=== PATIENT | male | born 1990 | race American Indian/Alaskan Native ===

== ENCOUNTER 2019-04-06 12:16 | Emergency (ER) | payer SELFPAY ==
[2019-04-06 12:22] VITALS: BP 118/81
--- NOTE | 2019-04-06 12:26 | Emergency Department Report ---
Chief Complaint: Wound/Laceration Stated Complaint: CUT ON L FINGER - HPI History of Present Illness: This is a 29-year-old male nontoxic well in appearance with no signs of distress presents to the ED for a work excuse note. Patient stated had a small cut last week and was home for a few days. Patient denies any symptoms or complaints. Denies any fever, chills, headache, nausea, vomiting, chest pain or SOB. Denies any allergies or PMH. Stated is UTD with tetanus. - Exam Vital Signs: Vital Signs 04/06/19 12:21 Temperature 98.0 F Pulse Rate 68 Respiratory 16 Rate Blood Pressure 118/81 O2 Sat by Pulse 100 Oximetry Physical Exam: Neurovacular intact. Normal healing. No cellulitis or abscess. Well healed. MSE screening note: Focused history and physical exam performed. Due to findings the following was ordered: ED Medical Decision Making - Medical Decision Making Patient was instructed to Follow-up with a primary care doctor in 3-5 days or if symptoms worsen and continue return to emergency room as soon as possible. At time of discharge, the patient does not seem toxic or ill in appearance. No acute signs of distress noted. Patient agrees to discharge treatment plan of care. No further questions noted by the patient. ED Disposition for MSE Clinical Impression: Encounter to obtain excuse from work Disposition: DC-01 TO HOME OR SELFCARE Is pt being admited?: No Does the pt Need Aspirin: No Condition: Stable Additional Instructions: Follow-up with a primary care doctor in 3-5 days or if symptoms worsen and continue return to emergency room as soon as possible. Referrals: PRIMARY CAREMD [Referring] - 3-5 Days CONSTANTINE KHALIL MD [Staff Physician] - 3-5 Days [facility] [Outside] - 3-5 Days [facility] [Outside] - 3-5 Days Forms: Work/School Release Form(ED)
== END 2019-04-06 12:40 | disposition home or self-care (01) ==
LOC: ED 12:16
DX: Z02.79 Encounter for issue of other medical certificate (principal)
CPT/HCPCS: 99282

== ENCOUNTER 2019-07-31 13:50 | Emergency (ER) | payer SELFPAY ==
[2019-07-31] MEDS ORDERED: TETANUS,DIPH,PERTUSS(ACELL) VACCINE 0.5 ML SYRINGE IM ONE (14:45)
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
[2019-07-31 17:45] VITALS: BP 140/90
== END 2019-07-31 17:44 | disposition home or self-care (01) ==
LOC: ED 13:50
DX: S50.821A Blister (nonthermal) of right forearm, initial encounter (principal); F12.10 Cannabis abuse, uncomplicated; Z79.899 Other long term (current) drug therapy; X58.XXXA Exposure to other specified factors, initial encounter; Y93.89 Activity, other specified; Y92.89 Other specified places as the place of occurrence of the external cause; Y99.8 Other external cause status
CPT/HCPCS: 90471; 90715; 99282

== ENCOUNTER 2020-04-24 23:08 | Emergency (ER) | payer SELFPAY ==
[2020-04-24 23:31] VITALS: BP 138/92
--- NOTE | 2020-04-25 00:07 | Emergency Department Report ---
ED ENT HPI - General Chief complaint: Dental/Oral Stated complaint: TOOTH PAIN Time Seen by Provider: 04/24/20 23:50 Source: patient Mode of arrival: Ambulatory Limitations: No Limitations - History of Present Illness Initial comments: Patient is a 30-year-old male who presents emergency room with complaints of left upper tooth pain. Patient states started 3 days ago. Patient states the pain is worsened. Patient states the pain is a 10 out of 10. Patient states his upper gums are swollen. Patient states the pain is worse with movement, eating, talking. Patient states the pain is better with rest and Tylenol. Patient states he has taken Tylenol and Motrin as needed. Patient states he has not seen a dentist since 2016. Patient states he has had dental caries in the past. Patient denies allergies. Patient denies past medical history. Patient denies recent surgery. Patient denies recent travel. Patient denies recent international travel. Patient denies exposure to the novel coronavirus. Patient denies sick contacts. Patient denies fever and chills. Patient denies cough. Patient denies diarrhea. Patient denies coming in contact with anybody with symptoms of the novel coronavirus. MD complaint: tooth pain -: Sudden Severity: severe Severity scale (0 -10): 10 Quality: stabbing Consistency: constant Improves with: NSAID, other medication, rest Worsens with: eating, movement Context- Dental: history of dental caries Associated Symptoms: gum swelling, toothache. denies: fever, cough, pain with swallowing, sore throat, tinnitus, hearing loss, discharge from ear, rhinorrhea - Related Data Previous Rx's Medication Instructions Recorded Last Taken Type SILVER sulfADIAZINE 50 GRAM 1 applic TP BID 7 Days #1 tube 07/31/19 Unknown Rx [Thermazene 50 Gram] Acetaminophen/Codeine [Tylenol 1 tab PO Q6H PRN #8 tab 04/25/20 Unknown Rx /Codeine # 3 tab] Amoxicillin/Potassium Clav 1 each PO BID 10 Days #20 tablet 04/25/20 Unknown Rx [Augmentin 875-125 Tablet] Ibuprofen [Motrin 800 MG tab] 800 mg PO Q8HR PRN #30 tablet 04/25/20 Unknown Rx Allergies Allergy/AdvReac Type Severity Reaction Status Date / Time No Known Allergies Allergy Unverified 04/06/19 12:17 ED Dental HPI - General Chief complaint: Dental/Oral Stated complaint: TOOTH PAIN Time Seen by Provider: 04/25/20 00:03 Source: patient Mode of arrival: Ambulatory Limitations: No Limitations - History of Present Illness Improves with: NSAID, rest Worsens with: chewing, movement Context- Dental: history of dental caries, poor dental care - Related Data Previous Rx's Medication Instructions Recorded Last Taken Type SILVER sulfADIAZINE 50 GRAM 1 applic TP BID 7 Days #1 tube 07/31/19 Unknown Rx [Thermazene 50 Gram] Acetaminophen/Codeine [Tylenol 1 tab PO Q6H PRN #8 tab 04/25/20 Unknown Rx /Codeine # 3 tab] Amoxicillin/Potassium Clav 1 each PO BID 10 Days #20 tablet 04/25/20 Unknown Rx [Augmentin 875-125 Tablet] Ibuprofen [Motrin 800 MG tab] 800 mg PO Q8HR PRN #30 tablet 04/25/20 Unknown Rx Allergies Allergy/AdvReac Type Severity Reaction Status Date / Time No Known Allergies Allergy Unverified 04/06/19 12:17 ED Review of Systems ROS: Stated complaint: TOOTH PAIN Other details as noted in HPI Constitutional: denies: chills, fever Eyes: denies: eye pain, eye discharge, vision change ENT: as per HPI, dental pain. denies: ear pain, throat pain Respiratory: denies: cough, shortness of breath, wheezing Cardiovascular: denies: chest pain, palpitations Endocrine: no symptoms reported Gastrointestinal: denies: abdominal pain, nausea, diarrhea Genitourinary: denies: urgency, dysuria Musculoskeletal: denies: back pain, joint swelling, arthralgia Skin: denies: rash, lesions Neurological: denies: headache, weakness, paresthesias Psychiatric: denies: anxiety, depression Hematological/Lymphatic: denies: easy bleeding, easy bruising ED Past Medical Hx - Past Medical History Previous Medical History?: No - Surgical History Past Surgical History?: No - Family History Family history: no significant - Social History Smoking Status: Never Smoker Substance Use Type: None - Medications Home Medications: Home Medications Medication Instructions Recorded Confirmed Last Taken Type SILVER sulfADIAZINE 50 GRAM 1 applic TP BID 7 Days #1 tube 07/31/19 Unknown Rx [Thermazene 50 Gram] Acetaminophen/Codeine [Tylenol 1 tab PO Q6H PRN #8 tab 04/25/20 Unknown Rx /Codeine # 3 tab] Amoxicillin/Potassium Clav 1 each PO BID 10 Days #20 tablet 04/25/20 Unknown Rx [Augmentin 875-125 Tablet] Ibuprofen [Motrin 800 MG tab] 800 mg PO Q8HR PRN #30 tablet 04/25/20 Unknown Rx ED Physical Exam - General Limitations: No Limitations General appearance: alert, in no apparent distress - Head Head exam: Present: atraumatic, normocephalic - Eye Eye exam: Present: normal appearance - ENT ENT exam: Present: mucous membranes moist, other (Dental caries noted. No oral abscess noted. Gingivitis noted on the left upper gums.) - Neck Neck exam: Present: normal inspection - Respiratory Respiratory exam: Present: normal lung sounds bilaterally. Absent: respiratory distress - Cardiovascular Cardiovascular Exam: Present: regular rate, normal rhythm. Absent: systolic murmur, diastolic murmur, rubs, gallop - GI/Abdominal GI/Abdominal exam: Present: soft, normal bowel sounds - Rectal Rectal exam: Present: deferred - Extremities Exam Extremities exam: Present: normal inspection - Back Exam Back exam: Present: normal inspection - Neurological Exam Neurological exam: Present: alert, oriented X3 - Psychiatric Psychiatric exam: Present: normal affect, normal mood - Skin Skin exam: Present: warm, dry, intact, normal color. Absent: rash ED Course Vital Signs 04/24/20 23:25 Temperature 98.6 F Pulse Rate 88 Respiratory 18 Rate Blood Pressure 138/92 O2 Sat by Pulse 95 Oximetry - Reevaluation(s) Reevaluation #1: I discussed all clinical findings with patient. I discussed plan of care with patient. Patient agrees with plan of care. Patient is stable for discharge. Patient will be discharged home. Patient given discharge instructions. Patient voiced understanding of discharge instructions. 04/25/20 00:06 ED Medical Decision Making - Medical Decision Making Patient is a 30-year-old male that presents emergency room with complaints of dental pain and a toothache. Patient found to have gingival inflammation. Patient does not have an oral abscess noted. Patient will be given oral antibiotics and discharged home. Patient instructed to follow-up with a dentist as soon as possible. Patient does not require further emergency evaluation. Patient will require antibiotics to prevent further progression of a gingival infection. - Differential Diagnosis Toothache, gingivitis, dental pain Critical care attestation.: If time is entered above; I have spent that time in minutes in the direct care of this critically ill patient, excluding procedure time. ED Disposition Clinical Impression: Toothache, Gingivitis Disposition: TO HOME OR SELFCARE Is pt being admited?: No Does the pt Need Aspirin: No Condition: Stable Instructions: Dental Caries (ED), Toothache (ED) Additional Instructions: Patient to follow-up with primary care in 2 to 3 days. Patient to follow-up with dentist in 2 to 3 days. Patient to rest. Patient to increase water. Patient to take Tylenol or ibuprofen as needed for pain. Patient to take meds as directed. Patient to return to the ER if condition worsens, changes or new symptoms arise. Prescriptions: Amoxicillin/Potassium Clav [Augmentin 875-125 Tablet] 1 each PO BID 10 Days #20 tablet Ibuprofen [Motrin 800 MG tab] 800 mg PO Q8HR PRN #30 tablet PRN Reason: Pain, Moderate (4-6) Acetaminophen/Codeine [Tylenol /Codeine # 3 tab] 1 tab PO Q6H PRN #8 tab PRN Reason: Pain , Severe (7-10) Time of Disposition: 00:09
== END 2020-04-24 23:55 | disposition home or self-care (01) ==
LOC: ED 23:08
DX: K05.10 Chronic gingivitis, plaque induced (principal); K08.89 Other specified disorders of teeth and supporting structures; Z79.899 Other long term (current) drug therapy
CPT/HCPCS: 99282